=== PATIENT | female | born 1985 | race Caucasian/White ===

== ENCOUNTER → 2017-09-15 | Outpatient (CLI) | payer BC | LOC: FIMAGING 09:19 | PROVIDERS: ATTEND Advanced Practice Midwife | DX: O09.812 Supervision of pregnancy resulting from assisted reproductive technology, second trimester (principal); Z3A.24 24 weeks gestation of pregnancy ==

== ENCOUNTER 2017-12-28 06:15 | Inpatient (IN) | payer BC ==
--- NOTE | 2017-12-03 15:45 | GHP ---
[f rep st] PREOP HISTORY AND PHYSICAL DATE OF ADMISSION: 12/28/2017 DATE OF PLANNED PROCEDURE: 12/29/2017 PLANNED PROCEDURE: Repeat low transverse section, possible bilateral salpingectomy. INDICATIONS: Patient is a 32-year-old 3, para 1-0-1-1, who will be 39 and 3/7 weeks gestatio n. She has a history of a previous low transverse section for arrest of descent and dilatio n and is electing to have a repeat low transverse section. The patient's family status is c omplete and is considering a tubal ligation or bilateral salpingectomy with this procedure versus the vasectomy. She will let us know day of surgery what her plans are. The patient is declining a tria l of labor as her last labor was arrested, most likely secondary to cephalopelvic disproportion and s he elects to have a repeat low transverse section. Risks and benefits have been reviewed wi th the patient and patient has been properly consented. Patient's estimated date of confinement is 01/03/2018, with a last menstrual period of 04/17/2017. T he patient is dated by IVF embryo transfer. Her has been uncomplicated. PAST MEDICAL HISTORY: Significant for infertility, secondary to possible polycystic ovarian syndrome , hypothyroidism. MEDICATIONS: Synthroid 50 mcg, vitamin D, baby aspirin, and vitamins with DHEA. She is als o on iron. PAST SURGICAL HISTORY: section. ALLERGIES: No known drug allergies. SOCIAL HISTORY: Patient is . She denies tobacco, alcohol, or drug use. FAMILY MEDICAL HISTORY: Noncontributory. OBSTETRIC/GYNECOLOGIC HISTORY: Menarche age 12. Periods are irregular and she has oligomenorrhea. They usually last 3 days. She is a 3, para 1-0-1-1. In 2014, she had a spontaneous . In 03/2016, she had a primary low transverse section for arrest of descent, occiput poste rior at 39 and 6/7 weeks gestation. She delivered a 5 pounds 14 ounce female infant. Current pregna ncy has been uncomplicated. She conceived with in-vitro fertilization. Patient denies any history o f any abnormal Pap smears or sexually transmitted diseases. REVIEW OF SYSTEMS: 10-point review of systems is negative. PHYSICAL EXAMINATION: VITAL SIGNS: Stable. GENERAL APPEARANCE: Alert and oriented x3. MUSCULOSKE LETAL: Grossly intact. PSYCH: Appropriate affect. NEURO: Grossly intact. NECK: Mobile and supp le. HEART: Rate is regular. LUNGS: Clear to auscultation bilaterally. ABDOMEN: Gravid, nondiste nded, nontender. EXTREMITIES: Reveal no calf tenderness or edema. PELVIC: Cervical exam is declin ed. LABORATORY DATA: labs: Blood type A positive. Antibody screen negative. Rubella immune. GBS is pending. HBsAg negative. HIV negative. 50 gram glucose was 90. ASSESSMENT: 32-year-old 3, para 1-0-1-1 who will be 39 and 3/7 weeks who plans on having a r epeat low transverse section. She will let us know whether or not she wants a tubal ligatio n or salpingectomy. Consent has been obtained. /[id number]/MODL
[2017-12-28] MEDS ORDERED: LR 500 ML IV ONE (06:26)
[2017-12-28] MEDS ORDERED: ceFAZolin 2 GM/DEXTROSE 100 ML IV ONE (06:26)
[2017-12-28] MEDS ORDERED: CITRIC ACID/SODIUM CITRATE 30 ML UDCUP PO ONE (06:26)
[2017-12-28] MEDS: LR 1,000 ML IV SCH ×2 (06:41→16:03)
[2017-12-28 06:49] LABS: PLATELET COUNT 190 10^3/uL (150-400)
--- NOTE | 2017-12-28 07:41 | PREANESOB ---
Obstetric Pre-Anesthesia Info - General Info Proposed Procedure: Repeat C Section. : 3 Para: 1 GRACIE: 01/03/18 Gestational Age: 39 week(s) and 1 day(s) - Info Status: Full Term Monitors: External FHR Baseline (bpm): 130 FHR Pattern: Reassuring - Labor Status Indications for Current Section: Elective/Repeat Labor Epidural: No Anesthesia ROS: Prior spinal for C Section. Allergies/Adverse Reactions: Allergy/AdvReac Type Severity Reaction Status Date / Time No Known Allergies Allergy Unverified 03/23/16 19:00 Home Medications: Medication Instructions Recorded 03/24/16 Synthroid 75 mcg (*) 03/24/16 VITAMIN D 03/24/16 Hydrocodone/APAP 5/325 [[place] 1 - 2 tab PO Q4HRS PRN #30 tab 03/27/16 5/325 (*)] Ibuprofen [Motrin (*)] 600 mg PO ONCE PRN #30 tab 03/27/16 Iron Polysacch/Iron Heme Polyp 28 mg PO BID #60 tab 03/27/16 [Bifera] Visit Medications: Generic Name Dose Route Start Last Admin Trade Name Freq PRN Reason Stop Dose Admin Cefazolin Sodium/Dextrose 100 mls @ 200 mls/hr 12/28/17 06:26 Ancef 2 Gm IV 12/28/17 06:55 ONCALL ONE Protocol Lactated Ringer's 1,000 mls @ 125 mls/hr 12/28/17 06:30 12/28/17 06:41 Lr IV 12/29/17 06:29 1,000 mls CONT LA NENA Administration Discontinued Medications Generic Name Dose Route Start Last Admin Trade Name Freq PRN Reason Stop Dose Admin Citric Acid/Sodium Citrate 30 ml 12/28/17 06:26 Bicitra PO 12/28/17 06:27 ONCALL ONE Lactated Ringer's 500 mls @ 0 mls/hr 12/28/17 06:26 Lr IV 12/28/17 06:27 ONCE ONE As Directed - Anesthesia History Response to Local Anesthetics: Normal Anesthesia & Operative History: No Prior Problems Family Anesthesia History: Negative - Social History Substance Use/Abuse: Denies - Vital Signs Latest Vital Signs (Nursing): Temp Pulse Resp BP Pulse Ox 37.1 C 76 16 129/87 H 97 12/28/17 06:50 12/28/17 06:50 12/28/17 06:50 12/28/17 06:50 12/28/17 06:50 Blood Pressure: 129/87 Heart Rate: 80 Height/Weight (Nursing): Height 162.56 cm Weight 68.039 kg - Focused Exam Neck exam: FROM Mallampati Score: Class 1 Mouth exam: normal dental/mouth exam Pulmonary: no respiratory distress Cardiovascular: regular rate and rhythym Labs: 12/28/17 06:34 - Plan Anesthetic Plan: SAB Consent Signed and on Chart: Yes Patient/Guardian Understands and Agrees to Plan: Yes
[2017-12-28] MEDS ORDERED: morphINE PF 5 MG/10 ML INJ ONE (07:55)
[2017-12-28] MEDS ORDERED: fentaNYL 100 MCG/2 ML INJ ONE (07:56)
[2017-12-28] MEDS ORDERED: PHENYLEPHRINE HCL 100 MCG/ML SYR ONE (08:16)
[2017-12-28] MEDS ORDERED: OXYTOCIN 100 UNITS/10 ML VIAL ONE (08:16)
[2017-12-28] MEDS ORDERED: ONDANSETRON 4 MG/2 ML VIAL ONE ×2 (08:16)
[2017-12-28] MEDS ORDERED: DEXAMETHASONE 4 MG/ML VIAL ONE ×2 (08:16)
[2017-12-28] MEDS ORDERED: SCOPOLAMINE HYDROBROMIDE 1 MG/3 DAYS PATCH TD ONE ×2 (09:54→10:01)
[2017-12-28] MEDS ORDERED: ONDANSETRON 4 MG/2 ML VIAL IVP PRN (09:58)
[2017-12-28] MEDS ORDERED: NALOXONE HCL 0.4 MG/ML INJ IVP PRN (09:58)
[2017-12-28] MEDS ORDERED: PHENYLEPHRINE HCL 100 MCG/ML SYR IVP PRN (09:58)
--- NOTE | 2017-12-28 10:03 | POSTANESTH ---
Post Anesthetic Evaluation Cardiovascular Status: Normal, Stable, Similar to Pre-Op Cond Respiratory Status: Normal, Stable, Similar to Pre-op Cond. Level of Consciousness/Mental Status: Can Participate in Eval, Alert and Oriented Pain Control: Adequate, Prn Tx Ordered Nausea/Vomiting Control: Adequate, Prn Tx Ordered Complications Possibly Related to Anesthesia: None Noted
[2017-12-28] MEDS ORDERED: PROMETHAZINE HCL 25 MG/ML INJ IVP PRN (10:04)
[2017-12-28] MEDS ORDERED: BISACODYL 10 MG SUPP PR PRN (10:04)
[2017-12-28] MEDS ORDERED: LACTULOSE 20 GM/30 ML UDCUP PO PRN (10:04)
[2017-12-28] MEDS ORDERED: MAGNESIUM HYDROXIDE 30 ML UDCUP PO PRN (10:04)
[2017-12-28] MEDS ORDERED: SIMETHICONE 80 MG TAB CHEW PO PRN (10:04)
[2017-12-28] MEDS ORDERED: HYDROCODONE/APAP 5/325 TAB PO PRN (10:04)
[2017-12-28] MEDS ORDERED: DOCUSATE SODIUM 100 MG CAP PO PRN (10:04)
[2017-12-28] MEDS ORDERED: POLYETHYLENE GLYCOL 3350 17 GM PKT PO PRN (10:04)
--- NOTE | 2017-12-28 10:09 | OBDEL ---
Info Type: Vaginal Presentation at Delivery: Vertex L&D Analgesia/Anesthesia Type: Spinal GBS+: No Intrapartum Medications: Generic Name Dose Route Start Last Admin Trade Name Freq PRN Reason Stop Dose Admin Lactated Ringer's 1,000 mls @ 125 mls/hr 12/28/17 06:30 12/28/17 06:41 Lr IV 12/29/17 06:29 1,000 mls CONT LA NENA Administration Discontinued Medications Generic Name Dose Route Start Last Admin Trade Name Freq PRN Reason Stop Dose Admin Citric Acid/Sodium Citrate 30 ml 12/28/17 06:26 12/28/17 07:58 Bicitra PO 12/28/17 06:27 Not Given ONCALL ONE Cefazolin Sodium/Dextrose 100 mls @ 200 mls/hr 12/28/17 06:26 12/28/17 07:53 Ancef 2 Gm IV 12/28/17 06:55 100 mls ONCALL ONE Administration Protocol Lactated Ringer's 500 mls @ 0 mls/hr 12/28/17 06:26 12/28/17 06:45 Lr IV 12/28/17 06:27 500 mls ONCE ONE Administration As Directed Indications for Delivery: Elective Operative Report - Delivery Pre-op Diagnoses: IUP 39 1/7 weeks, history of prior section, CPD with G1, declines trial of labor, family status complete Post-op Diagnoses: same and preop plus nuchal cord History of Prior Section: Yes Number of Prior Sections: 1 Indications for Prior Section: Arrest of Descent, Arrest of Dilation Indications for Current Section: Elective/Repeat Procedure: Scheduled, Tubal Ligation Surgeon: Sylvie Pickard Irrigator Head: Latesha Talley Anesthesiologist: Terry Longoria Complications: Nucal Cord Findings: babies head not well engaged in pelvis. vacuum needed to deliver head Specimen(s)/Path: Fallopian Tube(s) EBL: 800 [place] Data GRACIE: 01/03/18 Gestational Age: 39 week(s) and 1 day(s) Self Delivery Date: 12/28/17 Delivery Time: 08:42 Sex of : Male Weight (gm): 3442 g Score (1 Min): 8 Score (5 Min): 9 ICD10 Worksheet Patient Problems: Problems Problem Status Onset Oligohydramnios Acute Status post primary low transverse section Acute
--- NOTE | 2017-12-28 10:51 | GOP ---
[f rep st] OPERATIVE REPORT DATE OF OPERATION: 12/28/2017 SURGEON: Sylvie Pickard DO SUPERVISOR SPECIAL EDUCATION: YAIR Holden. ANESTHESIA: Spinal. ANESTHESIOLOGIST: Kin Longoria MD. PREOPERATIVE DIAGNOSIS: 1. Intrauterine at 39 and 3/7 weeks gestation. 2. History of previous low transverse section. 3. Family status complete. POSTOPERATIVE DIAGNOSIS: 1. Intrauterine at 39 and 3/7 weeks gestation. 2. History of previous low transverse section. 3. Family status complete. PROCEDURE PERFORMED: FINDINGS: 1. Viable male infant in the cephalic presentation, delivered at 8:42 a.m. Apgars were 8 and 9. 2. Intact placenta with 3-vessel cord. 3. Normal ovaries, uterus and tubes. SPECIMENS: Bilateral fallopian tubes and cord blood for collection. ESTIMATED BLOOD LOSS: 800 cc. INDICATIONS: Patient is a 32-year-old 3, para 1-0-1-1, who is 39 and 1/7 weeks' gestation. She has a history of previous low transverse section for arrest of dilation and is electing to have a repeat low transverse section. Family status is complete and she would like to ivy ve a bilateral salpingectomy. Risks and benefits of the procedure were reviewed with the patient. T he patient was properly consented. DESCRIPTION OF PROCEDURE: Patient was taken to the operating room with intravenous fluids in place. She was given 2 g of Ancef intravenously and seated on the operating room table where spinal anesthe alberto was obtained. She was then repositioned into the dorsal supine position with a leftward tilt and prepped and draped in the normal sterile fashion after a Benton catheter and Venodyne's were placed. Anesthesia was assessed and found to be adequate. A previous keloid scar was excised and Pfannensti el skin incision was then made with the scalpel and carried through the underlying layer of fascia wi th the Bovie. The fascia was then nicked in the midline. The fascial incision was extended laterall y. The superior aspect of the fascial incision was then grasped with Olivia's, tented up and the und erlying rectus muscle dissected off bluntly with the Bovie. Attention was then turned to the inferio r aspect of the fascial incision which in a similar fashion was grasped with Olivia tented up and the underlying rectus muscle dissected off bluntly with the Bovie. The rectus muscle was then in the midline. The peritoneum was identified, tented up, and entered sharply with the Metzenbaum s cissors. The incision was extended superiorly and inferiorly with excellent visualization of the katerin dder. The bladder blade was then inserted. The vesicouterine peritoneum was identified, tented up, and entered sharply with the Metzenbaum scissors. The incision was extended laterally and a bladder flap was created digitally. The bladder blade was then reinserted. The uterus was then incised in a low transverse fashion with the scalpel. The uterine incision was extended laterally digitally. Me mbranes were artificially ruptured. A large amount of clear fluid was noted and the infant's head wa s noted to be not well engaged in the pelvis at all. After initial attempts to deliver the head were unsuccessful the vacuum was applied and the was easily delivered through the incision and the vacuum was then released, nuchal cord x1 was reduced and the remainder of the was delivered w ithout difficulty. Cord was clamped x2 and cut and the infant was handed off to awaiting nu rse practitioner. Cord blood for storage was collected. Intact placenta with 3-vessel cord delivere d without difficulty. The uterus was then exteriorized and cleared of all clots and debris and wrapp ed in a moist laparotomy sponge. Pitocin was started. The bladder blade was then reinserted and the hysterotomy was closed with 0 Vicryl in a running locked fashion. A 2nd 0 Vicryl stitch was used to imbricate the uterine incision. The ovaries, uterus and tubes were unremarkable. A 2nd [address] itch was used to imbricate the uterine incision. A Hyrum was used to grasp the right fallopian tub e and tented up gently. Avascular areas of the mesosalpinx were cauterized and an 0 Vicryl stitch wa s used to suture ligate the vessel to the fallopian tube and the salpingectomy was performed on the c ontralateral side. Hemostasis was assured. The gutters were cleared of all clots and debris, and th e uterus was then returned to the patient's abdomen. The hysterotomy remained hemostatic. The pedic les from the removal of fallopian tube were evaluated and found to be hemostatic. The peritoneum was reapproximated with 3-0 Vicryl in a running fashion. Rectus muscles reapproximated with 2-0 Vicryl in a running fashion. Fascia was closed with 0 Vicryl in a running fashion. Jorden's tissue was steven pproximated with 2-0 Vicryl in a running fashion. Subcuticular tissue was closed with 3-0 Vicryl in a running fashion. Steri-Strips were applied to the abdomen. Sponge, lap, and needle count were cor rect x2. Patient was transferred to recovery room in stable condition. /[id number]/MODL
[2017-12-28] MEDS ORDERED: KETOROLAC 30 MG/1 ML SDV ONE (11:02)
[2017-12-28] MEDS: KETOROLAC 30 MG/1 ML SDV IVP SCH ×3 (11:14→23:31)
[2017-12-28] MEDS: ACETAMINOPHEN 325 MG TAB PO SCH ×2 (12:18→18:22)
[2017-12-28] MEDS: IBUPROFEN 600 MG TAB PO SCH ×2 (12:19→18:23)
--- NOTE | 2017-12-28 18:37 | OBPP ---
Progress Note Assessment/Plan: Assessment: p2 pod# 0 s/p RLTCS with bilateral salpingectomy breast feeding Plan: routine post and post operative care 12/28/17 18:34 Subjective/ Course: 12/28/17 18:35 patient is doing great! pain is well controlled. normal lochia. denies headache and changes in vision. breast feeding is going well. tolerating diet Objective: 12/28/17 06:34 Patient ABO/Rh A POSITIVE 12/28/17 06:34 Temp Pulse Resp BP Pulse Ox 36.3 C 60 17 121/84 H 96 12/28/17 15:23 12/28/17 15:23 12/28/17 18:00 12/28/17 15:23 12/28/17 14:01 Physical Exam - Physical Exam Neck: non-tender, full range of motion Respiratory: chest non-tender, lungs clear, normal breath sounds Cardiac/Chest: normal peripheral pulses, regular rate, rhythm Abdomen: normal bowel sounds, non-tender Extremities: normal range of motion, non-tender, normal inspection, normal capillary refill Skin: normal color, warm/dry, other (incision covered) Neuro/Psych: no motor/sensory deficits, alert, normal mood/affect, oriented x 3
[2017-12-29] MEDS: IBUPROFEN 600 MG TAB PO SCH ×4 (02:31→20:55)
[2017-12-29] MEDS: ACETAMINOPHEN 325 MG TAB PO SCH ×5 (02:31→20:54)
[2017-12-29] MEDS: SENNOSIDES/DOCUSATE SODIUM TAB PO SCH ×3 (02:35→22:58)
[2017-12-29] MEDS: KETOROLAC 30 MG/1 ML SDV IVP SCH (05:05)
[2017-12-29] MEDS: LEVOTHYROXINE 50 MCG TAB PO SCH (05:06)
[2017-12-29] MEDS ORDERED: PATCH REMOVAL 1 EA PATCH TD ONE (10:02)
--- NOTE | 2017-12-29 10:37 | OBPP ---
Progress Note Assessment/Plan: Assessment: p2 pod# 1 s/p RLTCS with bilateral salpingectomy breast feeding Anemia Plan: routine post and post operative care Daily iron 12/29/17 18:39 12/29/17 18:44 Subjective/ Course: 12/28/17 18:35 patient is doing great! pain is well controlled. normal lochia. denies headache and changes in vision. breast feeding is going well. tolerating diet 12/29/17 18:40 Feeling good, pain well controlled, tolerating regular diet. going well. Tolerating activity in room. No concerns Objective: 12/29/17 06:20 Patient ABO/Rh A POSITIVE 12/28/17 06:34 Temp Pulse Resp BP Pulse Ox 36.2 C 60 16 86/58 L 94 12/29/17 07:00 12/29/17 07:00 12/29/17 07:00 12/29/17 07:00 12/29/17 07:00 Uterine Position/Fundal Height: Umbilicus -1 Uterine Tone: Firm Physical Exam - Physical Exam EENT: PERRL/EOMI Neck: non-tender Respiratory: lungs clear, normal breath sounds Cardiac/Chest: normal peripheral pulses, regular rate, rhythm, edema (trace lower leg edema) Abdomen: hypoactive bowel sounds, flatus, incision (well approximated - steri strips intact) Extremities: normal range of motion Back: Normal inspection Skin: normal color, warm/dry Neuro/Psych: alert, normal mood/affect, oriented x 3
[2017-12-29] MEDS: oxyCODONE IR 5 MG TAB PO PRN ×4 (11:21→23:38)
[2017-12-29] MEDS: FERROUS SULFATE 325 MG TAB PO SCH (11:22)
[2017-12-30] MEDS: IBUPROFEN 600 MG TAB PO SCH ×4 (03:10→21:32)
[2017-12-30] MEDS: oxyCODONE IR 5 MG TAB PO PRN ×3 (03:11→12:33)
[2017-12-30] MEDS: ACETAMINOPHEN 325 MG TAB PO SCH ×4 (03:11→21:32)
[2017-12-30] MEDS: LEVOTHYROXINE 50 MCG TAB PO SCH (07:13)
[2017-12-30] MEDS: FERROUS SULFATE 325 MG TAB PO SCH (08:52)
[2017-12-30] MEDS: SENNOSIDES/DOCUSATE SODIUM TAB PO SCH ×3 (08:52→21:31)
--- NOTE | 2017-12-30 10:30 | OBPP ---
Progress Note Assessment/Plan: Assessment: 1) s/p RCS and b/l salpingectomy POD # 2 - pt is stable 2) Anemia - pt is asymptomatic Plan: Continue routine post-op care Encourage ambulation Cont iron Plan for d/c home in am 12/3112/30/17 10:27 Subjective/ Course: 12/28/17 18:35 patient is doing great! pain is well controlled. normal lochia. denies headache and changes in vision. breast feeding is going well. tolerating diet 12/29/17 18:40 Feeling good, pain well controlled, tolerating regular diet. going well. Tolerating activity in room. No concerns 12/30/17 10:28 Pt seen and examined. Doing well, up ambulating the halls. Pain is well controlled. Gin regular diet, voiding without difficulty, and passing flatus. No BM yet. Denies any f/c/n/v/CP or SOB. Mod lochia. BF well so far. Wanting to go home in the morning. Objective: 12/29/17 06:20 Patient ABO/Rh A POSITIVE 12/28/17 06:34 Temp Pulse Resp BP Pulse Ox 36.3 C 64 16 104/60 96 12/30/17 08:00 12/30/17 08:00 12/30/17 08:00 12/30/17 08:00 12/30/17 08:00 Uterine Position/Fundal Height: Umbilicus -2 Uterine Tone: Firm Physical Exam - Physical Exam General Appearance: WD/WN, alert, no apparent distress Respiratory: lungs clear, normal breath sounds Cardiac/Chest: regular rate, rhythm Abdomen: normal bowel sounds, non-tender, soft, flatus (+), incision (C/D/I, with steri strips in place) Extremities: non-tender, normal inspection Skin: normal color, warm/dry Neuro/Psych: alert, normal mood/affect, oriented x 3
[2017-12-31] MEDS: IBUPROFEN 600 MG TAB PO SCH ×2 (03:25→09:56)
[2017-12-31] MEDS: ACETAMINOPHEN 325 MG TAB PO SCH ×2 (03:26→09:56)
[2017-12-31] MEDS: LEVOTHYROXINE 50 MCG TAB PO SCH (05:46)
--- NOTE | 2017-12-31 09:05 | OBGCSDC ---
General Delivery Information - General Info : 3 Para: 2 Abortions: 1 Type: Vaginal L&D Analgesia/Anesthesia Type: Spinal Admission Date: 12/28/17 Labs: Patient ABO/Rh A POSITIVE 12/28/17 06:34 Hct 30.3 % (38.0-47.0) L 12/29/17 06:20 - Hospital Course : 12/28/17 18:35 patient is doing great! pain is well controlled. normal lochia. denies headache and changes in vision. breast feeding is going well. tolerating diet 12/29/17 18:40 Feeling good, pain well controlled, tolerating regular diet. going well. Tolerating activity in room. No concerns 12/30/17 10:28 Pt seen and examined. Doing well, up ambulating the halls. Pain is well controlled. Gin regular diet, voiding without difficulty, and passing flatus. No BM yet. Denies any f/c/n/v/CP or SOB. Mod lochia. BF well so far. Wanting to go home in the morning. 12/31/17 09:04 S) Pt doing well, reports min pain and bleeding. she is ambulating and voiding without difficulty. She is . She desires discharge home today. O) VSS, afebrile constitutional: WNWF, A&Ox3 HEENT: normocephalic, atraumatic, supple Heart: RRR, No murmur Chest: CTA-B Abdomen: Soft, nontender incision: C/D/I Uterus: Firm at U-2 Lochia: Minimal rubra Extremities: Trace edema, and negative Melanie's sign Neuro: Grossly normal A) 32-year-old S/P repeat c/s with bilateral salpingectomy POD#3 P) Discharge home today Continue Pelvic rest x6wks Discussed danger signs (infection, preeclampsia, depression, heavy bleeding, etc ) RTO in 2/4/6 weeks - Delivery Providers Surgeon: Sylvie Pickard Progress Clerk: Latesha Talely Anesthesiologist: Terry Longoria - Delivery Number of Prior Sections: 1 Indications for Current Section: Elective/Repeat Surgical Procedures: Scheduled, Tubal Ligation Intra-op Complications: Nucal Cord EBL: 800 [place] Data GRACIE: 01/03/18 Gestational Age: 39 week(s) and 4 day(s) Self Delivery Date: 12/28/17 Delivery Time: 08:42 Sex of Infant: Male Weight (gm): 3442 g Score (1 Min): 8 Score (5 Min): 9
[2017-12-31] MEDS: SENNOSIDES/DOCUSATE SODIUM TAB PO SCH (09:55)
[2017-12-31] MEDS: FERROUS SULFATE 325 MG TAB PO SCH (09:55)
[2017-12-31 10:33] VITALS: BP 112/73
== END 2017-12-31 11:00 | disposition home or self-care (01) | DRG 766 ==
LOC: FLD 06:15 → FOB 11:40
PROVIDERS: ADMIT Obstetrics & Gynecology; ATTEND Obstetrics & Gynecology
PROC: 10D00Z1 Extraction of Products of Conception, Low, Open Approach (ICD-10-PCS; principal; 2017-12-28)
PROC: 0UT70ZZ Resection of Bilateral Fallopian Tubes, Open Approach (ICD-10-PCS; principal; 2017-12-28)
DX: O34.211 Maternal care for low transverse scar from previous cesarean delivery (principal); O69.81X0 Labor and delivery complicated by cord around neck, without compression, not applicable or unspecified; O99.02 Anemia complicating childbirth; O99.284 Endocrine, nutritional and metabolic diseases complicating childbirth; Z30.2 Encounter for sterilization; D64.9 Anemia, unspecified; E03.9 Hypothyroidism, unspecified; Z87.59 Personal history of other complications of pregnancy, childbirth and the puerperium; Z37.0 Single live birth; Z3A.39 39 weeks gestation of pregnancy
CPT/HCPCS: J0690; J1100; J1885; J2274; J2370; J2405; J2590; J3010